=== PATIENT | male | born 2000 | race Caucasian/White ===

== ENCOUNTER 2019-03-31 16:48 | Emergency (ER) | payer BC ==
[2019-03-31 17:09] VITALS: BP 128/77
--- NOTE | 2019-03-31 17:11 | UC ---
Throat Pain/Nasal Slade HPI - HPI Summary HPI Summary: 18-year-old male whose had a sore throat for 2 days. No fever or chills. No nausea vomiting or diarrhea. - History of Current Complaint Chief Complaint: UCRespiratory Stated Complaint: ST Time Seen by Provider: 03/31/19 17:01 Hx Obtained From: Patient Onset/Duration: Gradual Onset Severity: Mild Pain Intensity: 5 Cough: None Associated Signs & Symptoms: Positive: Negative - Allergies/Home Medications Allergies/Adverse Reactions: Allergies Allergy/AdvReac Type Severity Reaction Status Date / Time Penicillins Allergy Rash Verified 03/31/19 17:03 Home Medications: Home Medications D-Methorphan/PE/Acetaminophen [Vicks Dayquil Cold & Flu] 2 cap PO Q6H PRN [History Confirmed 03/31/19] PMH/Surg Hx/FS Hx/Imm Hx Previously Healthy: Yes - Surgical History Surgical History: None - Family History Known Family History: Positive: Non-Contributory - Social History Alcohol Use: Rare Substance Use Type: None Smoking Status (MU): Current Some Day Smoker Type: eCigarettes Review of Systems All Other Systems Reviewed And Are Negative: Yes ENT: Positive: Sore Throat Is Patient Immunocompromised?: No Physical Exam Triage Information Reviewed: Yes Appearance: Well-Appearing, No Pain Distress, Well-Nourished Vital Signs: Initial Vital Signs Temp 98.1 F 03/31/19 17:02 Pulse 81 03/31/19 17:02 Resp 12 03/31/19 17:02 BP 128/77 03/31/19 17:02 Pulse Ox 100 03/31/19 17:02 Vital Signs Reviewed: Yes Eyes: Positive: Conjunctiva Clear ENT: Positive: Hearing grossly normal, Pharynx normal, TMs normal, Uvula midline Neck: Positive: Supple, Nontender, No Lymphadenopathy Respiratory: Positive: Lungs clear, Normal breath sounds, No respiratory distress, No accessory muscle use Cardiovascular: Positive: RRR, No Murmur, Pulses Normal, Brisk Capillary Refill Musculoskeletal Exam: Normal Neurological Exam: Normal Psychological Exam: Normal Skin Exam: Normal Throat Pain/Nasal Course/Dx - Course Course Of Treatment: Rapid strep test was negative. - Differential Dx/Diagnosis Provider Diagnosis: Pharyngitis Discharge - Sign-Out/Discharge Documenting (check all that apply): Patient Departure All imaging exams completed and their final reports reviewed: No Studies - Discharge Plan Condition: Fair Disposition: HOME Patient Education Materials: Pharyngitis (ED) Referrals: Carroll Wylie MD [Medical Doctor] - Additional Instructions: Increase fluids, warm salt water gargles, throat lozenges. Follow up with your primary care provider on Thursday or Thursday if no improvement. - Billing Disposition and Condition Condition: FAIR Disposition: Home
== END 2019-03-31 17:44 | disposition home or self-care (01) ==
LOC: UCCORT 16:48
DX: J02.9 Acute pharyngitis, unspecified (principal); F17.290 Nicotine dependence, other tobacco product, uncomplicated
CPT/HCPCS: 87651; 99211; G0463